=== PATIENT | male | born 1935 | race Hispanic/Latino ===

== ENCOUNTER 2017-06-03 07:18 | Day surgery (SDC) | payer MEDICARE, OTHER ==
[2017-05-31 15:06] VITALS: BMI 27.5
[2017-06-03 08:10] LABS: BASO # 0.08 K/mm3 (0.0-2.0); BASO % 1.1 % (0.0-3.0); EOS # 0.4 (0.0-0.7); EOS % 5.5 % (1.5-5.0); GRAN # 4.63 (1.4-6.5); GRAN % 65.1 % (50.0-68.0); HEMATOCRIT 43.8 % (42.0-52.0); LYMPH # 1.1 (1.2-3.4); LYMPH % 15.8 % (22.0-35.0); MEAN CELL VOLUME 89.4 fl (80.0-105.0); MEAN CORPUSCULAR HEMOGLOBIN 29.6 pg (25.0-35.0); MEAN CORPUSCULAR HGB CONC 33.1 g/dl (31.0-37.0); MEAN PLATELET VOLUME 11.7 fl (7.0-11.0); MONO # 0.9 (0.1-0.6); MONO % 12.5 % (1.0-6.0); RED CELL DISTRIBUTION WIDTH 14.4 % (11.5-14.5); WHITE BLOOD COUNT 7.1 10^3/ul (4.5-11.0)
[2017-06-03 08:22] VITALS: RESP 18
[2017-06-03 08:23] LABS: CALCIUM 9.5 mg/dL (8.4-10.5)
[2017-06-03 08:26] LABS: INR 1.14 (0.93-1.08); PARTIAL THROMBOPLASTIN TIME 29.2 Seconds (25.1-36.5)
[2017-06-03] MEDS ORDERED: Lidocaine 2% Inj (20ml) ONE (09:35)
[2017-06-03] MEDS ORDERED: Midazolam 2 MG/2 ML VIAL ONE ×2 (09:35→10:13)
[2017-06-03] MEDS ORDERED: Iodixanol 320 MG/ML 200 ML BOTTLE IV ONE (09:36)
--- NOTE | 2017-06-03 10:18 | CARD ---
APPROVED REPORT EKG Measurement Heart [id number] <Conclusion> Sinus bradycardia with 1st degree AVB LVH by voltage Possible Inferior infarct, age undetermined No change except increased voltage V 5,6
[2017-06-03] MEDS ORDERED: Sodium Chloride 0.9% 1,000 ML IV SCH (11:00)
[2017-06-03 11:20] VITALS: TEMP 97.8
[2017-06-03 13:29] VITALS: O2SAT 99
[2017-06-03 14:22] VITALS: BP 112/59; PULSE 58
--- NOTE | 2017-06-03 14:39 | CARDCATH ---
PROCEDURE DATE: 06/03/2017 HISTORY: The patient is an 82-year-old male who presents with an abnormal stress test. The patient's past medical history includes an old inferior wall myocardial infarction, PTCA of the LAD in the past, diabetes mellitus, hypertension, and hypercholesterolemia, who presents with exertional dyspnea. Stress test was abnormal. Because of this, cardiac catheterization was recommended. PROCEDURE: The right femoral artery was cannulated with 6-M[place] sheath. There were no complications. I performed moderate sedation, which included the presence of an independent trained observer that assisted in monitoring the patient's level of consciousness and physiologic status. After administration of Versed and fentanyl, my intra service time was 15 minutes. Left heart catheterization with coronary arteriography and left ventriculogram were performed. There were no complications. FINDINGS: The findings on catheterization revealed a left ventricle that revealed an akinetic inferobasal segment. The anterior wall moves well. Estimated ejection fraction is 45% to 50%. His coronary anatomy revealed a right dominant circulation. 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 The left main artery is unremarkable. The LAD and diagonal vessels revealed intimal irregularities with a patent stent in the midportion of the LAD. The circumflex artery and obtuse marginal branches were free of significant disease. The patient tolerated the procedure well. A Mynx system was used to close the femoral artery site. In summary, the procedure revealed patent stent in the LAD, occluded proximal RCA, inferobasal akinesis with an estimated ejection fraction of 45% to 50%. Given these findings, the patient's catheterization is unchanged from his previous. We will continued medical therapy and a cardiac risk reduction program. Darren Payan MD
== END 2017-06-03 16:09 | disposition home or self-care (01) ==
LOC: CATH 07:18
PROVIDERS: ATTEND Internal Medicine Cardiovascular Disease
DX: I25.10 Atherosclerotic heart disease of native coronary artery without angina pectoris (principal); I25.82 Chronic total occlusion of coronary artery; I10 Essential (primary) hypertension; E78.00 Pure hypercholesterolemia, unspecified; E11.9 Type 2 diabetes mellitus without complications; I25.2 Old myocardial infarction; Z79.84 Long term (current) use of oral hypoglycemic drugs; Z79.82 Long term (current) use of aspirin; Z95.5 Presence of coronary angioplasty implant and graft
CPT/HCPCS: 36415; 80048; 80061; 85025; 85610; 85730; 86850; 86900; 93005; 93458; 99152; C1760; C1769; C2629; J0360; J1644; J2250; J3010; J7030; J7040

== ENCOUNTER 2018-08-12 09:08 | Outpatient (CLI) | payer MEDICARE, OTHER | END 2018-08-12 09:09 | disposition home or self-care (01) | LOC: RAD 09:09 ==